=== PATIENT | female | born 1990 | race Caucasian/White ===

== ENCOUNTER 2019-11-26 02:18 | Emergency (ER) | payer OTHER | END 2019-11-26 03:20 | disposition left against medical advice (07) | LOC: M ED 02:18 | DX: Z53.21 Procedure and treatment not carried out due to patient leaving prior to being seen by health care provider (principal) ==

== ENCOUNTER 2021-02-25 13:59 | Emergency (ER) | payer SELFPAY ==
[~2021-02-25] VITALS: Ht 167.6 cm; Wt 82.3 kg
[2021-02-25 15:16] LABS: BASO % 0.1 % (0.0-1.0); EOS % 0.3 % (0.0-3.0); HEMATOCRIT 41.1 % (36.0-47.0); HEMOGLOBIN 14.2 g/dl (12.0-15.5); LYMPH % 19.9 % (24.0-44.0); MEAN CORPUSCULAR HEMOGLOBIN 30.6 pg (27.0-33.0); MEAN CORPUSCULAR HGB CONC 34.5 g/dl (32.0-36.5); MEAN CORPUSCULAR VOLUME 88.6 fl (80.0-96.0); MONO # 0.5 10^3/uL (0.0-0.8); MONO % 5.3 % (2.0-8.0); NEUTROPHILS # 7.3 10^3/uL (1.5-8.5); NEUTROPHILS % 73.9 % (36.0-66.0); PLATELET COUNT, AUTOMATED 208 10^3/uL (150-450); RED BLOOD COUNT 4.64 10^6/uL (4.00-5.40); WHITE BLOOD COUNT 9.9 10^3/uL (4.0-10.0)
--- NOTE | 2021-02-25 15:43 | REP ---
INDICATION: 12wk vag bleeding. COMPARISON: None. TECHNIQUE: Transabdominal scanning FINDINGS: The uterus measures 9.3 x 6.9 x 9.1 cm. Within the uterus there is an anechoic structure with increased echoes surrounding it consistent with a decidual reaction. The mean gestational sac diameter is consistent with a 9 week 6 day gestational age. Doppler interrogation of the gestational sac shows no evidence of cardiac activity. Adjacent to the developing chorion posterior midline and on the left there is an area of decreased echoes the overall measurement is approximately 4.7 x 1.1 x 3.6 cm. No echogenic material is seen within the gestational sac that would be considered consistent with a pole. There is no yolk sac. The right ovary was not visualized. Left ovary measures 2.5 x 2.8 x 1.9 cm and is within normal limits with an RI of 0.34. No free fluid is seen in the cul-de-sac. IMPRESSION: There is an empty gestational sac, as described above, in adjacent to it there is evidence of a subchorionic hemorrhage rather than non chorionic fusion during early since the patient has a history of vaginal bleeding. Possible blighted ovum or spontaneous . Follow-up is recommended. <Electronically signed by Pepe Duque > 02/25/21 [id number]
[2021-02-25 16:35] LABS: BLOOD UREA NITROGEN 9 MG/DL (7-18); CARBON DIOXIDE LEVEL 27 MEQ/L (21-32); CHLORIDE LEVEL 105 MEQ/L (98-107); CREATININE FOR GFR 0.69 MG/DL (0.55-1.30); GLOMERULAR FILTRATION RATE > 60.0 (>60); GLUCOSE, FASTING 87 MG/DL (70-100); HCG, SERUM QUANTITATIVE 8912 MIU/ML; POTASSIUM SERUM 3.9 MEQ/L (3.5-5.1); SODIUM LEVEL 139 MEQ/L (136-145)
--- NOTE | 2021-02-25 17:19 | CR.PDOC ---
General Date of Consultation: Feb 25, 2021 Consultation REASON FOR CONSULTATION/CHIEF COMPLAINT: spotting. HISTORY OF PRESENT ILLNESS: Pt is a 30yo of unknown gestational age (LMP sometime in November) who presents to the ER with vaginal spotting which began yesterday and is now resolved. The patient does not have any insurance and josephine phipps has not had any care yet in this . Does not have an US for dating at this time. She has a history of an SAB in G1 and an ETOP in G2. She denies fevers/chills. Denies abdominal pain. On US in the ER today, patient is found to have an empty gestational sac measuring 42mm which is diagnostic of a failure based on the NEJM criteria for Ultrasonographic diagnosis of failure. She is Rh positive, no role for rhogam. She is hemodynamically stable and not having any vaginal bleeding at this time. ALLERGIES: Please see below. HOME MEDICATIONS: Please see below. LABORATORY DATA: Please see below. ASSESSMENT/PLAN: Non-viable intrauterine , missed Options ncluding expectant management, medical management, or surgical management 1. Expectant management - highest risk of retained products of conception. No way to predict timing of miscarriage. 2. Medical management - cytotec 800 mcg buccal OR intravaginal - will induce miscarriage, expect heavy vaginal bleeding and significant abdominal cramping - more likely to result in complete passage of tissue (compared to expectant management), however, retained products still possible - pt should call if soaking through more than 1 pad per hour for more than two hours straight - motrin/tyl PRN pain management - may have some GI upset including cramping and diarrhea as a side effect 3. Surgical management - dilation and evacuation/curettage - fastest way to resolve with lowest risk of retained products of conception - risks associated with anesthesia and procedure including infection/damage to surrounding structures/uterine perforation - expensive if paying out of pocket without insurance Regardless of management, pt should call the office to set up a follow up visit (should be allowed one ER follow up visit regardless of insurance status). Ret urn to ER if vaginal bleeding is soaking through more than one pad an hour for two hours straight though heavy vaginal bleeding is to be expected in expectant management or medical management. Also to return if having severe pain not controlled with medication or fevers > 100.4. Vital Signs/I&O Vital Signs Date Time Temp Pulse Resp B/P (MAP) Pulse Ox O2 Delivery O2 Flow Rate FiO2 02/25/21 13:59 98.2 70 20 111/72 (85) 100 Room Air Laboratory Data Labs 24H Laboratory Tests 2 02/25/21 15:00: Immature Granulocyte % (Auto) 0.5, Neutrophils (%) (Auto) 73.9H, Lymphocytes (%) (Auto) 19.9L, Monocytes (%) (Auto) 5.3, Eosinophils (%) (Auto) 0.3, Basophils (%) (Auto) 0.1, Neutrophils # (Auto) 7.3, Lymphocytes # (Auto) 2.0, Monocytes # (Auto) 0.5, Eosinophils # (Auto) 0.0, Basophils # (Auto) 0.0, Nucleated Red Blood Cells % (auto) 0.0, Anion Gap 7L, Glomerular Filtration Rate > 60.0, Calcium Level 9.0, Human Chorionic Gonadotropin, Quant [id number] 02/25/21 15:03: Urine Color YELLOW, Urine Appearance CLOUDYH, Urine pH 5.0, Urine Specific [place] 1.010, Urine Protein NEGATIVE, Urine Glucose (UA) NEGATIVE, Urine Ketones TRACEH, Urine Blood 2+H, Urine Nitrite NEGATIVE, Urine Bilirubin NEGATIVE, Urine Urobilinogen 0.2, Urine Leukocyte Esterase NEGATIVE, Urine WBC (Auto) 2, Urine RBC (Auto) 3, Urine Hyaline Casts (Auto) 0, Urine Bacteria (Auto) 1+H, Urine Squamous Epithelial Cells 21, Urine Mucus (Auto) SMALL, Urine Sperm (Auto) CBC/BMP Laboratory Tests 02/25/21 15:00 Allergies Coded Allergies: No Known Allergies (Verified Allergy, Unknown, 11/26/19) Home Medications No Active Prescriptions or Reported Meds ROCIO TRUJILLO MD Feb 25, 2021 17:19
[2021-02-25 17:21] VITALS: BP 125/64
== END 2021-02-25 17:27 | disposition home or self-care (01) ==
LOC: M ED 13:59
DX: O02.1 Missed abortion (principal)

== ENCOUNTER 2025-04-19 23:44 | Emergency (ER) | payer OTHER, SELFPAY ==
[2025-04-19] MEDS: THIAMINE 100 MG TAB PO SCH (21:00)
[2025-04-20 00:31] LABS: PLATELET COUNT, AUTOMATED 209 10^3/uL (150-450)
[2025-04-20 00:49] LABS: AMPHETAMINES LEVEL URINE NEGATIVE (NEGATIVE); BARBITURATES URINE NEGATIVE (NEGATIVE); BENZODIAZEPINES URINE NEGATIVE (NEGATIVE); CANNABINOIDS URINE NEGATIVE (NEGATIVE); COCAINE METABOLITE URINE NEGATIVE (NEGATIVE); METHADONE URINE NEGATIVE (NEGATIVE); OPIATES URINE NEGATIVE (NEGATIVE); PHENCYCLIDINE URINE NEGATIVE (NEGATIVE)
[2025-04-20 01:02] LABS: ETHYL ALCOHOL (ETHANOL) 0.261 % (0.000-0.010)
[2025-04-20 01:04] LABS: SALICYLATE LEVEL < 3.0 MG/DL (<30)
[2025-04-20 01:13] LABS: ALT/SGPT 49 U/L (7.0-40); AST/SGOT 47 U/L (<34); CALCIUM LEVEL 8.4 MG/DL (8.5-10.1); CARBON DIOXIDE LEVEL 24 MMOL/L (20-31); CHLORIDE LEVEL 103 MMOL/L (98-107); CREATININE FOR GFR 0.71 MG/DL (0.55-1.30); GLOMERULAR FILTRATION RATE > 90.0 (>60); POTASSIUM SERUM 4.0 MMOL/L (3.5-5.1); SODIUM LEVEL 139 MMOL/L (136-145)
[2025-04-20 01:21] LABS: HCG, SERUM QUALITATIVE NEGATIVE (NEGATIVE)
[2025-04-20] MEDS ORDERED: MULTIVITAMINS/MINERALS THERAP 1 TAB PO SCH (09:00)
[2025-04-20] MEDS ORDERED: FOLIC ACID 1 MG TAB PO SCH (09:00)
[2025-04-20 09:59] VITALS: BP 142/98; TEMP 98.6; O2SAT 99
== END 2025-04-20 10:02 | disposition home or self-care (01) ==
LOC: M ED 23:44
DX: F10.129 Alcohol abuse with intoxication, unspecified (principal); F32.A Depression, unspecified; F17.200 Nicotine dependence, unspecified, uncomplicated